=== PATIENT | male | born 1980 | race Caucasian/White ===

== ENCOUNTER 2016-09-19 09:34 | Emergency (ER) | payer OTHER ==
[~2016-09-19] VITALS: Wt 96.0 kg
[2016-09-19] MEDS ORDERED: SOD CHLORIDE 0.9% 1,000 ML IV STA (10:08)
[2016-09-19] MEDS ORDERED: KETOROLAC 30 MG INJ IV STA (10:08)
[2016-09-19] MEDS ORDERED: ONDANSETRON 4 MG INJ IV STA (10:08)
--- NOTE | 2016-09-19 10:15 | ERD ---
ER Documentation Chief Complaint Date/Time DATE: 09/19/16 TIME: 10:11 Chief Complaint right abd pain radiating to right flank for 2 days. hematuria with nausea HPI Patient is 36-year-old male with a past medical history of kidney stones, prediabetes who presents emergency department with right flank pain radiating into his right lower quadrant. Patient states the pain started 2 days ago. Patient describes the pain to be episodic in nature. Patient states the pain is stabbing. Patient states that he is having chills however denies any fevers. Patient reports nausea and vomiting started this morning. Patient also states he is having pain with urination and hematuria. 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 Lorenzo, today who advised him to come the emergency department. Patient states he required laser procedures in the past. Patient denies any chest pain, shortness of breath, headache or LOC. ROS All systems reviewed and are negative except as per history of present illness. Medications Home Meds Active Scripts Ondansetron (Ondansetron Odt) 4 Mg Tab.rapdis, 4 MG PO Q6H Y for NAUSEA AND/OR VOMITING, #12 TAB Prov:DEVAUGHN AGUAYO PA-C 09/19/16 Tamsulosin Hcl* (Flomax*) 0.4 Mg Cap.er.24h, 0.4 MG PO BID, #30 CAP Prov:DEVAUGHN AGUAYO PA-C 09/19/16 Ibuprofen* (Motrin*) 600 Mg Tab, 600 MG PO Q6, #30 TAB Prov:DEVAUGHN AGUAYO PA-C 09/19/16 Hydrocodone/Acetaminophen (Selma 5-325 Tablet) 1 Each Tablet, 1 TAB PO Q6H Y for PAIN, #10 TAB Prov:DEVAUGHN AGUAYO PA-C 09/19/16 PMhx/Soc Medical and Surgical Hx: pt denies Surgical Hx Hx Miscellaneous Medical Probl: Yes (KIDNEY STONE) Physical Exam Vitals Vital Signs Date Time Temp Pulse Resp B/P Pulse Ox O2 Delivery O2 Flow Rate FiO2 09/19/16 12:45 98.5 98 18 126/80 97 Room Air 09/19/16 09:36 98.8 112 22 160/88 98 Physical Exam GENERAL: Well-developed, well-nourished male. Appears in no acute distress. HEAD: Normocephalic, atraumatic. EYES: Pupils are equally reactive bilaterally. EOMs grossly intact. No conjunctival erythema. ENT: Moist mucous membranes. No uvula deviation. No kissing tonsils. NECK: Supple. No meningismus. Normal range of motion of the neck. LUNG: Clear to auscultation bilaterally. No rhonchi, wheezing, rales or coarse breath sounds. HEART: Regular rate and rhythm. No murmurs, rubs or gallops. ABDOMEN: No scars, ecchymosis or rashes noted. Soft, nontender, and nondistended. Positive bowel sounds in all four quadrants. No rebound tenderness , no guarding. (-) McBurney's point tenderness. R CVA tenderness. BACK: No midline tenderness. EXTREMITIES: Equal pulses bilaterally. No peripheral clubbing, cyanosis or edema. No unilateral leg swelling. NEUROLOGIC: Alert and oriented. Moving all four extremities without any difficulty. Normal speech. Steady gait. SKIN: Normal color. Warm and dry. No rashes or lesions. Result Diagram: 09/19/16 1015 09/19/16 1015 Results 24 hrs Laboratory Tests Test 09/19/16 09:20 09/19/16 10:15 Urine Bacteria FEW Urine Bilirubin NEGATIVE Urine Clarity CLEAR Urine Color LT. YELLOW Urine Epithelial Cells FEW Urine Glucose 0.5%% Urine Hemoglobin 3+ Urine Ketones 15 Urine Leukocyte Esterase TRACE Urine Microscopic RBC >200/HPF Urine Microscopic WBC 5-10/HPF Urine Nitrite NEGATIVE Urine Specific Nicholson 1.015 Urine Total Protein 2+ Urine Urobilinogen 0.2 E.U./dL Urine pH 6.0 Alanine Aminotransferase (ALT/SGPT) 33IU/L Albumin 4.4g/dl Albumin/Globulin Ratio 1.57 Alkaline Phosphatase 137IU/L Anion Gap 21 Aspartate Amino Transf (AST/SGOT) 22IU/L Basophils # 0.010^3/ul Basophils % 0.3% Blood Urea Nitrogen 19mg/dl Calcium Level 10.6mg/dl Carbon Dioxide Level 22mmol/L Chloride Level 98mmol/L Creatinine 1.14mg/dl Direct Bilirubin 0.00mg/dl Eosinophils # 0.010^3/ul Eosinophils % 0.3% Globulin 2.80g/dl Glucose Level 315mg/dl Hematocrit 43.7% Hemoglobin 15.7g/dl Indirect Bilirubin 0.5mg/dl Lipase 70U/L Lymphocytes # 1.010^3/ul Lymphocytes % 11.5% Mean Corpuscular Hemoglobin 27.2pg Mean Corpuscular Hemoglobin Concent 35.9g/dl Mean Corpuscular Volume 75.7fl Mean Platelet Volume 11.0fl Monocytes # 0.610^3/ul Monocytes % 6.8% Neutrophils # 7.110^3/ul Neutrophils % 80.9% Nucleated Red Blood Cells # 0.010^3/ul Nucleated Red Blood Cells % 0.0/100WBC Platelet Count 21955^3/UL Potassium Level 4.3mmol/L Red Blood Count 5.7710^6/ul Red Cell Distribution Width 13.2% Sodium Level 137mmol/L Total Bilirubin 0.5mg/dl Total Protein 7.2g/dl White Blood Count 8.810^3/ul Current Medications Medications (Trade) Dose Ordered Sig/Denisse Route PRN Reason Start Time Stop Time Status Last Admin Dose Admin Sodium Chloride (NS) 1,000 ml @ 1,000 mls/hr Q1H STAT IV 09/19/16 10:08 09/19/16 11:07 DC 09/19/16 10:22 Ondansetron HCl (Zofran Inj) 4 mg ONCE STAT IV 09/19/16 10:08 09/19/16 10:10 DC 09/19/16 10:22 Ketorolac Tromethamine (Toradol) 30 mg ONCE STAT IV 09/19/16 10:08 09/19/16 10:10 DC 09/19/16 10:23 Procedures/MDM ED COURSE: The patient was stable throughout ED course. I kept the patient and/or family informed of laboratory and diagnostic imaging results throughout the ED course. DIAGNOSTIC IMAGING: Read by radiologist. Patient: RACHEL MATHIAS : 1980 Age: 36 Sex: M MR #: [id number] DOS: 09/19/16 1008 Ordering MD: DEVAUGHN AGUAYO PA-C Location: [facility] Room/Bed: PROCEDURE: CT Abdomen and pelvis without contrast. CLINICAL INDICATION: Right flank pain. TECHNIQUE: CT scan of the abdomen and pelvis without contrast was performed on a multidetector high-resolution CT scan. . Coronal and sagittal reformatted images were obtained from the axial source images. Standard CT scan of the abdomen pelvis without contrast protocols were performed. The total exam CTDI equals 22.93 mGy and the total exam DLP equals 1484.5 mGy- cm. One or more of the following dose reduction techniques were used: - Automated exposure control. - Adjustment of the mA and/or kV according to patient size. Use of iterative reconstruction technique. COMPARISON: None. FINDINGS: None There is a double-J a left ureteral stent in place which appears in good position. There are multiple small 2-3 mm mid to inferior left renal nonobstructing calculi. There are numerous small 1-3 mm mid to inferior nonobstructing right renal calculi. In the proximal right ureter there are multiple stacked calculi extending longitudinally 2 cm with the largest at the inferior location measuring approximately 7 mm resulting in mild proximal right hydroureter and hydronephrosis. There is moderate right perirenal stranding. There is no evidence of intra renal masses bilaterally. There are no calculi within the urinary bladder. The spleen is moderately enlarged but no focal splenic lesions. The liver is normal in size without focal lesions. The pancreas and adrenal glands are normal in size configuration without focal lesions. The gallbladder is unremarkable without biliary ductal dilation., small bowel and large bowel are unremarkable. The appendix is unremarkable. Negative for intra-abdominal free air fluid abscesses or lymphadenopathy. The aorta is unremarkable. The lung bases are unremarkable. The osseous structures are there is mild degenerative changes lower thoracic and lumbar spine. No acute osseous findings. No osteoblastic or osteolytic lesions. IMPRESSION: 1. In the proximal right ureter are multiple stacked calcified calculi measuring in the longitudinal plane 2 cm with the largest calculus at the inferior location measuring 7 mm resulting in mild proximal right hydroureter and hydronephrosis. Moderate right perirenal stranding consistent with obstructive uropathy. 2. Multiple bilateral small nonobstructing renal calculi. No left hydronephrosis. There is a double-J ureteral stent placed in good position. 3. No urinary bladder calculi. 4. Moderate splenomegaly without focal splenic lesions. 5. No evidence of intra or free air fluid abscesses or lymphadenopathy. 6. Unremarkable appendix. RPTAT:AAJJ B Physician Drainel Date Time Electronically viewed and signed by Physician Demetrius on 09/19/2016 12:24 BM/ CC: DEVAUGHN AGUAYO PA-C MEDICATIONS GIVEN: IV fluids, Zofran, Toradol. Given that patient was driving, narcotic medication was not administered. Patient tolerated medication well with no adverse reactions. Patient reported improvement in pain. MEDICAL DECISION MAKING: This is a 36-year-old male who presents with right flank pain radiating into his right lower quadrant and 2 days. Vital signs were reviewed. Patient was afebrile. Patient was not hypoxic. CBC showed no signs of acute infection or anemia. CMP showed glucose of 315. Creatinine function was within normal limits. BUN was within normal limits. UA showed positive ketones, greater than 200 RBCs, 3+ hemoglobin. Urine was negative. Abdominal CT showed proximal right ureter are multiple stacked calcified calculi measuring in the longitudinal plane 2 cm with the largest calculus at the inferior location measuring 7 mm resulting in mild proximal right hydroureter and hydronephrosis. Moderate right perirenal stranding consistent with obstructive uropathy. Multiple bilateral small nonobstructing renal calculi. No left hydronephrosis. There is a double-J ureteral stent placed in good position. No urinary bladder calculi. Moderate splenomegaly without focal splenic lesions. No evidence of intra or free air fluid abscesses or lymphadenopathy. Unremarkable appendix. Given these findings, the patient's presentation is most consistent with nephrolithiasis and hyperglycemia. Low suspicion for DKA. Low suspicion pyelonephritis, appendicitis, diverticulitis, bowel perforation, bowel obstruction, constipation, urethritis, prostatitis, epididymitis, testicular torsion. PRESCRIPTIONS: Ibuprofen, Selma, Flomax, Zofran DISCHARGE: At this time, patient is stable for discharge and outpatient management. Patient was provided with a copy of all imaging and lab studies performed today. At this time, patient will need to follow-up with his road freight firer for further management of his kidney stones. Patient may need to have a laser procedure done given the size of the stones. I have instructed the patient to follow-up with his/her primary care physician/road freight firer in 1-2 days. If symptoms persist, patient may need to see a specialist for further examinations and testing. I have instructed the patient to promptly return to the ER at any time for any new or worsening symptoms including increased increased pain, fever , nausea, vomiting, urinary changes or weakness. The patient and/or family expressed understanding of and agreement with this plan. All questions were answered. Home care instructions were provided. Patient's random blood sugar level was elevated (>140), but appears stable without evidence of DKA or end organ failure. I had discussion with the patient about the risk of diabetes. I have advised the patient to follow up with his/her primary care physician for outpatient monitoring and treatment for elevated blood sugar levels in 2-3 days. I have instructed the patient to return to the ER for any new or worsening symptoms including chest pain, shortness of breath, headache, confusion, abdominal pain, nausea, vomiting, weakness or LOC. Patient's blood pressure was elevated (>120/80) but appears stable without evidence of hypertensive emergency, hypertensive urgency or end-organ failure. I had discussion with the patient about the risks of hypertension. I have advised the patient to follow up with his/her primary care physician for outpatient monitoring and treatment for hypertension in 2-3 days. I have instructed the patient to return to the ER for any new or worsening symptoms including chest pain, shortness of breath, headache, blurred vision, confusion, nausea, vomiting or LOC. Departure Diagnosis: Primary Impression: Nephrolithiasis Additional Impression: Hyperglycemia Condition: Stable Patient Instructions: Preventing Kidney Stones Referrals: [facility] YOU HAVE RECEIVED A MEDICAL SCREENING EXAM AND THE RESULTS INDICATE THAT YOU DO NOT HAVE A CONDITION THAT REQUIRES URGENT TREATMENT IN THE EMERGENCY DEPARTMENT. FURTHER EVALUATION AND TREATMENT OF YOUR CONDITION CAN WAIT UNTIL YOU ARE SEEN IN YOUR DOCTORS OFFICE WITHIN THE NEXT 1-2 DAYS. IT IS YOUR RESPONSIBILITY TO MAKE AN APPOINTMENT FOR FOLOW-UP CARE. IF YOU HAVE A PRIMARY DOCTOR --you should call your primary doctor and schedule an appointment IF YOU DO NOT HAVE A PRIMARY DOCTOR YOU CAN CALL OUR PHYSICIAN REFERRAL HOTLINE AT IF YOU CAN NOT AFFORD TO SEE A PHYSICIAN YOU CAN CHOSE FROM THE FOLLOWING [facility] [address] [facility] [address] [facility] [facility] [address] [facility] [address] [facility] [facility] [address] [facility]. [facility]. [address] [facility]. [facility] YOU HAVE RECEIVED A MEDICAL SCREENING EXAM AND THE RESULTS INDICATE THAT YOU DO NOT HAVE A CONDITION THAT REQUIRES URGENT TREATMENT IN THE EMERGENCY DEPARTMENT. FURTHER EVALUATION AND TREATMENT OF YOUR CONDITION CAN WAIT UNTIL YOU ARE SEEN IN YOUR DOCTORS OFFICE WITHIN THE NEXT 1-2 DAYS. IT IS YOUR RESPONSIBILITY TO MAKE AN APPOINTMENT FOR FOLOW-UP CARE. IF YOU HAVE A PRIMARY DOCTOR --you should call your primary doctor and schedule and appointment IF YOU DO NOT HAVE A PRIMARY DOCTOR YOU CAN CALL OUR PHYSICIAN REFERRAL HOTLINE AT . IF YOU CAN NOT AFFORD TO SEE A PHYSICIAN YOU CAN CHOSE FROM THE FOLLOWING [facility]: [facility] [address] [place] [address] [facility] [address] [place], [place] [id number] [place] [address] [address] [place] [address] [facility]RGENT C[facility]/SPECIALTIES Additional Instructions: Call your primary care doctor TOMORROW for an appointment during the next 1-2 days.See the doctor sooner or return here if your condition worsens before your appointment time. Follow-up with your road freight firer, Dr. Lorenzo, in 2 days. DEVAUGHN AGUAYO PA-C Sep 19, 2016 10:15
[2016-09-19 10:36] LABS: ADD SCAN DIFF NO
[2016-09-19 10:43] LABS: BASOPHILS % 0.3 % (0.0-2.0); EOSINOPHILS % 0.3 % (0.0-7.0); HEMATOCRIT 43.7 % (42.0-52.0); HEMOGLOBIN 15.7 g/dl (14.0-18.0); LYMPHOCYTES % 11.5 % (15.0-51.0); MEAN CORPUSCULAR HEMOGLOBIN 27.2 pg (29.0-33.0); MEAN CORPUSCULAR HGB CONC 35.9 g/dl (32.0-37.0); MEAN CORPUSCULAR VOLUME 75.7 fl (82.0-101.0); MONOCYTE # 0.6 10^3/ul (0.3-0.9); MONOCYTES % 6.8 % (0.0-11.0); NEUTROPHIL # 7.1 10^3/ul (1.6-7.5); NEUTROPHILS % 80.9 % (39.0-77.0); PLATELET COUNT 218 10^3/UL (140-415); RED BLOOD COUNT 5.77 10^6/ul (4.70-6.10); RED CELL DISTRIBUTION WIDTH 13.2 % (11.5-14.5); WHITE BLOOD COUNT 8.8 10^3/ul (4.8-10.8)
[2016-09-19 10:49] LABS: ADD UMIC YES; URINE BILIRUBIN (Dip) NEGATIVE (NEGATIVE); URINE BLOOD (Dip) 3+ (NEGATIVE); URINE COLOR LT. YELLOW (YELLOW); URINE KETONES (Dip) 15 (NEGATIVE); URINE LEUKOCYTE ESTERASE (Dip) TRACE (NEGATIVE); URINE NITRITE (Dip) NEGATIVE (NEGATIVE); URINE TOTAL PROTEIN (Dip) 2+ (NEGATIVE); URINE UROBILINOGEN (Dip) 0.2 E.U./dL (0.1-1.0)
[2016-09-19 11:00] LABS: ALBUMIN 4.4 g/dl (3.3-4.9); POTASSIUM 4.3 mmol/L (3.5-5.1)
[2016-09-19 11:03] LABS: ALBUMIN/GLOBULIN RATIO 1.57; BILIRUBIN,INDIRECT 0.5 mg/dl (0-1.1); BILIRUBIN,TOTAL 0.5 mg/dl (0.2-1.3); CALCIUM 10.6 mg/dl (8.4-10.2); CREATININE 1.14 mg/dl (0.61-1.24); TOTAL PROTEIN 7.2 g/dl (6.1-8.1)
[2016-09-19 11:06] LABS: BACTERIA,URINE FEW; URINE RBCS >200 /HPF (0)
--- NOTE | 2016-09-19 12:24 | RADRPT ---
PROCEDURE: CT Abdomen and pelvis without contrast. CLINICAL INDICATION: Right flank pain. TECHNIQUE: CT scan of the abdomen and pelvis without contrast was performed on a multidetector hig h-resolution CT scan. . Coronal and sagittal reformatted images were obtained from the axial [facility] e images. Standard CT scan of the abdomen pelvis without contrast protocols were performed. The total exam CTDI equals 22.93 mGy and the total exam DLP equals 1484.5 mGy-cm. One or more of the following dose reduction techniques were used: - Automated exposure control. - Adjustment of the mA and/or kV according to patient size. Use of iterative reconstruction technique. COMPARISON: None. FINDINGS: None There is a double-J a left ureteral stent in place which appears in good position. There are multip le small 2-3 mm mid to inferior left renal nonobstructing calculi. There are numerous small 1-3 mm mid to inferior nonobstructing right renal calculi. In the proximal right ureter there are multiple stacked calculi extending longitudinally 2 cm with the largest at the inferior location measuring a pproximately 7 mm resulting in mild proximal right hydroureter and hydronephrosis. There is moderat e right perirenal stranding. There is no evidence of intra renal masses bilaterally. There are no calculi within the urinary bladder. The spleen is moderately enlarged but no focal splenic lesions. The liver is normal in size without focal lesions. The pancreas and adrenal glands are normal in size configuration without focal lesi ons. The gallbladder is unremarkable without biliary ductal dilation., small bowel and large bowel are unremarkable. The appendix is unremarkable. Negative for intra-abdominal free air fluid absces ses or lymphadenopathy. The aorta is unremarkable. The lung bases are unremarkable. The osseous s tructures are there is mild degenerative changes lower thoracic and lumbar spine. No acute osseous findings. No osteoblastic or osteolytic lesions. IMPRESSION: 1. In the proximal right ureter are multiple stacked calcified calculi measuring in the longitudina l plane 2 cm with the largest calculus at the inferior location measuring 7 mm resulting in mild pro ximal right hydroureter and hydronephrosis. Moderate right perirenal stranding consistent with obstr uctive uropathy. 2. Multiple bilateral small nonobstructing renal calculi. No left hydronephrosis. There is a doub le-J ureteral stent placed in good position. 3. No urinary bladder calculi. 4. Moderate splenomegaly without focal splenic lesions. 5. No evidence of intra or free air fluid abscesses or lymphadenopathy. 6. Unremarkable appendix. RPTAT:AAJJ Physician Demetrius Date Time Electronically viewed and signed by Kade Tena Physician on 09/19/2016 12:24 BM/
[2016-09-19] MEDS ORDERED: HYDR-906 PO (12:36)
[2016-09-19] MEDS ORDERED: IBUP-1542 PO (12:36)
[2016-09-19] MEDS ORDERED: TAMS-14 PO (12:37)
[2016-09-19] MEDS ORDERED: ONDA4TAB14 PO (12:37)
[2016-09-19 12:45] VITALS: BP 126/80; PULSE 98; RESP 18; TEMP 98.5
== END 2016-09-19 12:45 | disposition home or self-care (01) ==
LOC: FTE 09:34
DX: N20.0 Calculus of kidney (principal); R73.9 Hyperglycemia, unspecified
CPT/HCPCS: 36415; 74176; 80053; 81001; 81003; 83690; 85025; 96361; 96374; 96375; 99285; J1885; J2405; J7030

== ENCOUNTER 2019-04-21 09:50 | Emergency (ER) | payer OTHER ==
[~2019-04-21] VITALS: Ht 170.2 cm; Wt 92.9 kg
[~2019-04-21 09:50] MED LIST: HYDR-4011 PO; IBUP-1542 PO; IBUP800T48 PO; MED4DP PO; MELO7.5T38 PO; ONDA4TAB14 PO; TAMS-14 PO
[2019-04-21 09:52] VITALS: Ht 170.2 cm; Wt 92.9 kg
[2019-04-21] MEDS ORDERED: KETOROLAC 15 MG INJ IV STA (10:19)
[2019-04-21] MEDS ORDERED: HYDROmorphONE 0.5 MG/0.5 ML SYG IV STA (10:19)
[2019-04-21] MEDS ORDERED: SOD CHLORIDE 0.9% 1,000 ML IV ONE ×2 (10:30→11:30)
[2019-04-21 12:26] VITALS: BP 136/82; PULSE 77; RESP 18
== END 2019-04-21 13:54 | disposition home or self-care (01) ==
LOC: FTE 09:50
DX: R10.9 Unspecified abdominal pain (principal)
CPT/HCPCS: 36415; 80053; 81001; 82803; 85025; 96374; 96375; 99284; J1170; J1885; J7030